=== PATIENT | female | born 1940 | race Caucasian/White ===

== ENCOUNTER 2020-09-27 13:27 | Emergency (ER) | payer OTHER ==
[~2020-09-27] VITALS: Ht 175.2 cm; Wt 109.8 kg
[~2020-09-27 13:27] MED LIST: ANUSOL HC30 GM PO; ASPIRIN CHEWABL81 MG PO; COUMADIN5 M2 PO; HYDROCODONE BIT1 T11 PO; PRINIVIL5 M1 PO
[2020-09-27 14:27] LABS: BASO % 0.2 % (0.0-1.0); HEMATOCRIT 35.7 % (37.0-47.0); LYMPH # 0.4 10*3/uL (1.3-4.4); MEAN CELL VOLUME 92.7 fl (81.0-99.0); MEAN CORPUSCULAR HGB 27.3 pg (27.0-31.0); MEAN CORPUSCULAR HGB CONC 29.4 g/dl (33.0-37.0); MONO # 0.3 10*3/uL (0.1-1.0); MONO % 4.7 % (3.0-9.0); NEUT # 4.7 10*3/uL (2.3-7.9); NEUT % 86.4 % (47.0-73.0); NUCLEATED RED BLOOD CELL 0.4 % (0.0-0.0); PLATELET COUNT AUTOMATED 180 10*3/uL (130-400); RED BLOOD COUNT 3.85 10*6/uL (4.10-5.10); RED CELL DISTRI WIDTH 17.1 % (0-14.5); WHITE BLOOD COUNT 5.5 10*3/uL (4.8-10.8)
[2020-09-27 14:47] LABS: ALBUMIN 1.8 gm/dl (3.1-4.5); ALKALINE PHOSPHATASE 127 U/L (45-117); BUN 35 mg/dl (7-24); CHLORIDE 115 mmol/L (98-107); CREATININE 0.97 mg/dL (0.55-1.02); POTASSIUM 3.6 mmol/L (3.5-5.1); SGOT/AST 34 IU/L (3-35); SGPT/ALT 12 U/L (12-78); SODIUM 148 mmol/L (136-145); TOTAL PROTEIN 5.7 gm/dL (6.4-8.2)
[2020-09-27 14:49] LABS: ACT PARTIAL THROMBO TIME 55.3 SECONDS (20.0-32.1)
[2020-09-27 14:55] LABS: INTERNATIONAL NORM RATIO 6.8 (2.0-3.5)
== END 2020-09-27 18:38 | disposition short-term general hospital (02) ==
LOC: ED 13:27
PROVIDERS: Nurse Practitioner
DX: I82.412 Acute embolism and thrombosis of left femoral vein (principal); Z20.828 Contact with and (suspected) exposure to other viral communicable diseases; I82.432 Acute embolism and thrombosis of left popliteal vein; J98.11 Atelectasis; R91.8 Other nonspecific abnormal finding of lung field; Z88.8 Allergy status to other drugs, medicaments and biological substances; Z79.899 Other long term (current) drug therapy; Z79.82 Long term (current) use of aspirin; Z79.01 Long term (current) use of anticoagulants